=== PATIENT | male | born 1995 | race American Indian/Alaskan Native ===

== ENCOUNTER 2018-10-28 19:58 | Emergency (ER) | payer OTHER ==
--- NOTE | 2018-10-28 20:17 | Emergency Department Report ---
Blank Doc - Documentation Documentation: This is a 23-year-old male that presents with midsternum chest pain. Stated was hit by the ball while playing soft ball. This initial assessment/diagnostic orders/clinical plan/treatment(s) is/are subject to change based on patient's health status, clinical progression and re- assessment by fellow clinical providers in the ED. Further treatment and workup at subsequent clinical providers discretion. Patient/guardians urged not to elope from the ED as their condition may be serious if not clinically assessed and managed. Initial orders include: 1- Patient sent to [facility] for further evaluation and treatment 2- Rib/chest xray
--- NOTE | 2018-10-28 22:49 | XRay Report ---
PROCEDURE: XR RIBS BILAT W/PA CHEST 4+V TECHNIQUE: Bilateral rib radiographs, minimum of 4 views, including PA projection. HISTORY: chest pain s/p direct blow COMPARISONS: None . FINDINGS: Heart: Normal . Mediastinum/Vessels: Normal . Lungs: No infiltrate, effusion, or pneumothorax . Pleural space: Normal . Pneumothorax: None . Bony thorax/ribs: No acute or displaced rib fractures. Note that the scapula is not evaluated on thi s exam. IMPRESSION: No rib fracture is identified . This document is electronically signed by Cherry Gonzales MD., October 28 2018 10:47:23 PM ET
[2018-10-28] MEDS ORDERED: ULTRAM PO ONE (23:10)
--- NOTE | 2018-10-28 23:25 | Emergency Department Report ---
ED General Adult HPI - General Chief complaint: Chest Pain Stated complaint: CHEST PAIN Time Seen by Provider: 10/28/18 20:15 Source: patient Mode of arrival: Ambulatory Limitations: No Limitations - History of Present Illness Initial comments: pt is a 23 y/o aam who presents for right side chest wall pain after being struck by soccer ball during soccer game yesterday pain is 4/10 aching soreness to touch , pain exacerbated by deep breathing and touch pain relieved by rest pt has not taken otc nsaids, pt denies sob. Onset/Timin -: days(s) Location: chest (right chest wall ) Radiation: non-radiation Severity scale (0 -10): 6 Quality: aching Consistency: intermittent Improves with: rest Worsens with: movement, other (inspiration) Treatments Prior to Arrival: none - Related Data Previous Rx's Medication Instructions Recorded Last Taken Type Naproxen 500 mg PO BID PRN #30 tablet 10/28/18 Unknown Rx Allergies Allergy/AdvReac Type Severity Reaction Status Date / Time shellfish Allergy Anaphylaxis Uncoded 10/28/18 20:12 ED Review of Systems ROS: Stated complaint: CHEST PAIN Other details as noted in HPI Constitutional: denies: chills, fever Eyes: denies: eye pain, eye discharge, vision change ENT: denies: ear pain, throat pain Respiratory: denies: cough, shortness of breath, wheezing Cardiovascular: as per HPI, chest pain (right anterior chest wall pain ) Endocrine: no symptoms reported Gastrointestinal: denies: abdominal pain, nausea, diarrhea Genitourinary: denies: urgency, dysuria Musculoskeletal: denies: back pain, joint swelling, arthralgia Skin: denies: rash, lesions Neurological: denies: headache, weakness, paresthesias Psychiatric: denies: anxiety, depression Hematological/Lymphatic: denies: easy bleeding, easy bruising ED Past Medical Hx - Past Medical History Previous Medical History?: No - Surgical History Past Surgical History?: No - Social History Smoking Status: Never Smoker Substance Use Type: None - Medications Home Medications: Home Medications Medication Instructions Recorded Confirmed Last Taken Type Naproxen 500 mg PO BID PRN #30 tablet 10/28/18 Unknown Rx ED Physical Exam - General Limitations: No Limitations General appearance: alert, in no apparent distress - Head Head exam: Present: atraumatic, normocephalic - Eye Eye exam: Present: normal appearance - ENT ENT exam: Present: mucous membranes moist - Neck Neck exam: Present: normal inspection - Respiratory Respiratory exam: Present: normal lung sounds bilaterally, chest wall tenderness (right lateral chest wall pain ). Absent: respiratory distress - Cardiovascular Cardiovascular Exam: Present: regular rate, normal rhythm. Absent: systolic murmur, diastolic murmur, rubs, gallop - GI/Abdominal GI/Abdominal exam: Present: soft - Rectal Rectal exam: Present: deferred - Extremities Exam Extremities exam: Present: normal inspection - Back Exam Back exam: Present: normal inspection, full ROM. Absent: muscle spasm, rash noted - Neurological Exam Neurological exam: Present: alert, oriented X3, CN II-XII intact, normal gait, reflexes normal - Psychiatric Psychiatric exam: Present: normal affect, normal mood - Skin Skin exam: Present: warm, dry, intact, normal color. Absent: rash ED Course Vital Signs 10/28/18 20:18 Temperature 98.7 F Pulse Rate 76 Respiratory 20 Rate Blood Pressure 132/86 O2 Sat by Pulse 98 Oximetry ED Medical Decision Making - Radiology Data Radiology results: report reviewed, image reviewed Ordering Physician: CAMERON CORTÉS NP Date of Service: 10/28/18 Procedure(s): XR ribs BILAT w/PA chest 4+V Accession Number(s): [id number] cc: CAMERON CORTÉS NP Fluoro Time In Minutes: PROCEDURE: XR RIBS BILAT W/PA CHEST 4+V TECHNIQUE: Bilateral rib radiographs, minimum of 4 views, including PA projection. HISTORY: chest pain s/p direct blow COMPARISONS: None . FINDINGS: Heart: Normal . Mediastinum/Vessels: Normal . Lungs: No infiltrate, effusion, or pneumothorax . Pleural space: Normal . Pneumothorax: None . Bony thorax/ribs: No acute or displaced rib fractures. Note that the scapula is not evaluated on this exam. IMPRESSION: No rib fracture is identified . This document is electronically signed by Cherry Gonzales MD., October 28 2018 10:47:23 PM ET Transcribed By: [facility] Dictated By: CHERRY GONZALES M.D. Electronically Authenticated By: CHERRY GONZALES M.D. Signed Date/Time: 10/28/182248 DD/ 16 TD/TT: 04/10/19 2129 - Medical Decision Making Chest x-ray negative for fracture there is no step-off no crepitus nor ecchymosis or sounds are clear throughout no wheezing plan NSAIDs when necessary pain patient will follow with PCP in 2-3 days return immediately should symptoms worsen past this time improved since the incident administration patient DC'd home in stable condition at this time Critical care attestation.: If time is entered above; I have spent that time in minutes in the direct care of this critically ill patient, excluding procedure time. ED Disposition Clinical Impression: Chest wall pain Disposition: DC- TO HOME OR SELFCARE Is pt being admited?: No Does the pt Need Aspirin: No Condition: Stable Instructions: Chest Pain (ED) Prescriptions: Naproxen 500 mg PO BID PRN #30 tablet PRN Reason: pain Referrals: JEOVANY SON MD [Primary Care Provider] - 3-5 Days [facility] [Outside] - 3-5 Days Forms: Work/School Release Form(ED) Time of Disposition: 23:35
[2018-10-28 23:47] VITALS: BP 136/92
== END 2018-10-28 23:47 | disposition home or self-care (01) ==
LOC: ED 19:58
DX: R07.89 Other chest pain (principal)
CPT/HCPCS: 71111; 93005; 93010; 99283

== ENCOUNTER 2018-12-28 14:03 | Emergency (ER) | payer SELFPAY ==
--- NOTE | 2018-12-28 14:26 | Emergency Department Report ---
Blank Doc - Documentation Documentation: This is a 23-year-old male that presents with sore throat. This initial assessment/diagnostic orders/clinical plan/treatment(s) is/are subject to change based on patient's health status, clinical progression and re- assessment by fellow clinical providers in the ED. Further treatment and workup at subsequent clinical providers discretion. Patient/guardians urged not to elope from the ED as their condition may be serious if not clinically assessed and managed. Initial orders include: 1- Patient sent to [facility] for further evaluation and treatment 2- strep swab
[2018-12-28 14:27] VITALS: BP 146/88
== END 2018-12-28 16:38 | disposition left against medical advice (07) ==
LOC: ED 14:03
DX: R07.0 Pain in throat (principal); Z53.21 Procedure and treatment not carried out due to patient leaving prior to being seen by health care provider
CPT/HCPCS: 87116; 87430

== ENCOUNTER 2018-12-31 09:19 | Emergency (ER) | payer SELFPAY ==
[2018-12-31 09:26] VITALS: BP 141/93
== END 2018-12-31 11:37 | disposition left against medical advice (07) ==
LOC: ED 09:19
DX: R07.0 Pain in throat (principal); Z53.21 Procedure and treatment not carried out due to patient leaving prior to being seen by health care provider

== ENCOUNTER 2022-01-17 03:21 | Emergency (ER) | payer SELFPAY ==
[2022-01-17 03:29] VITALS: BP 146/94
== END 2022-01-17 05:00 | disposition left against medical advice (07) ==
LOC: ED 03:21
DX: R50.9 Fever, unspecified (principal); Z53.21 Procedure and treatment not carried out due to patient leaving prior to being seen by health care provider